=== PATIENT | male | born 1955 | race Caucasian/White ===

== ENCOUNTER 2016-09-20 16:03 | Emergency (ER) | payer OTHER ==
[~2016-09-20] VITALS: Ht 190.5 cm; Wt 117.9 kg
[~2016-09-20 16:03] MED LIST: ASPIRIN325 MG PO; FINASTERIDE5 MG PO; LOFIBRA160 MG PO; OMEPRAZOLE20 M1 PO; REQUIP3 MG PO; ZOLOFT100 MG PO
== END 2016-09-20 16:24 | disposition home or self-care (01) ==
LOC: ED 16:03
DX: Z00.8 Encounter for other general examination (principal)

== ENCOUNTER 2016-09-21 13:11 | Emergency (ER) | payer OTHER ==
[~2016-09-21] VITALS: Ht 190.5 cm; Wt 121.1 kg
== END 2016-09-21 15:53 | disposition home or self-care (01) ==
LOC: ED 13:11
DX: T81.33XA Disruption of traumatic injury wound repair, initial encounter (principal); K21.9 Gastro-esophageal reflux disease without esophagitis; Z79.899 Other long term (current) drug therapy
CPT/HCPCS: 12020; 99282

== ENCOUNTER 2022-11-15 13:45 | Emergency (ER) | payer MEDICARE, OTHER ==
[~2022-11-15] VITALS: Ht 190.5 cm; Wt 121.1 kg
[2022-11-15 14:42] LABS: INFLUENZA B NAA NEGATIVE (NEGATIVE); RESPIRATORY SYNCYTIAL VIR NAA NEGATIVE (NEGATIVE)
[2022-11-15] MEDS ORDERED: ONDANSETRON ODT4 MG PO (15:07)
[2022-11-15] MEDS ORDERED: PAXLOVID 300-11 EACH PO (15:07)
[2022-11-15 15:28] VITALS: BP 114/71
== END 2022-11-15 15:28 | disposition home or self-care (01) ==
LOC: ED 13:45
PROVIDERS: Emergency Medicine
DX: U07.1 COVID-19 (principal); Z79.899 Other long term (current) drug therapy
CPT/HCPCS: 87502; 99283; A9270; C9803; U0002